=== PATIENT | male | born 1990 | race Two or more races ===

== ENCOUNTER 2016-08-22 07:13 | Emergency (ER) | payer MEDICAID ==
[~2016-08-22] VITALS: Ht 177.8 cm; Wt 72.6 kg
[2016-08-22 07:20] VITALS: BP 103/66
== END 2016-08-22 09:26 | disposition left against medical advice (07) ==
LOC: EDUNIT# 07:13 → ER 07:20
DX: R10.32 Left lower quadrant pain (principal); R11.2 Nausea with vomiting, unspecified; Z53.21 Procedure and treatment not carried out due to patient leaving prior to being seen by health care provider